=== PATIENT | female | born 1995 | race Caucasian/White ===

== ENCOUNTER → 2024-02-19 | Outpatient (CLI) | payer OTHER ==
[2024-02-19 15:47] LABS: Urine Bacteria None Seen /hpf (None Seen)
[2024-02-19 15:52] LABS: Basophils # (auto) 0 10 ^3/uL (0-0.2); Basophils % (auto) 0.5 % (0.0-2.0); Eosinophils # (auto) 0.2 10 ^3/uL (0-0.8); Eosinophils % (auto) 2.3 % (0.0-7.0); Hematocrit 39.5 % (36.0-46.0); Hemoglobin 13.3 g/dL (12.2-16.2); Lymphocytes # (auto) 3.7 10 ^3/uL (0.4-5.4); Lymphocytes % (auto) 36.4 % (10.0-50.0); Mean Corpuscular Hemoglobin 31.8 pg (28.0-32.0); Mean Corpuscular Hgb Conc. 33.8 g/dL (32.0-36.0); Mean Corpuscular Volume 94.2 fL (80.0-100.0); Monocytes # (auto) 0.7 10 ^3/uL (0-1.3); Monocytes % (auto) 6.5 % (0.0-12.0); Neutrophils # (auto) 5.5 10 ^3/uL (1.6-8.6); Neutrophils % (auto) 54.3 % (37.0-80.0); Red Blood Cells 4.19 10^6/uL (4.0-5.20); Red Cell Distribution Width 12.1 % (11.8-14.3); White Blood Cell 10.1 10^3/uL (4.4-10.8)
[2024-02-19 16:19] LABS: Calcium 10.1 mg/dL (8.5-10.1); Carbon Dioxide 26 mmol/L (20-30)
[2024-02-19 16:20] LABS: BUN/Creatinine Ratio 10.3 (10.0-20.0); Blood Urea Nitrogen 7 mg/dL (9-23); Glucose 86 mg/dL (74-106)
[2024-02-19 16:22] LABS: Anion Gap 7 (5-15); Chloride 103 mmol/L (98-107); Sodium 136 mmol/L (136-145); Thyroid Stimulating Hormone 1.22 uIU/mL (0.55-4.78)
[2024-02-19 16:30] LABS: Beta HCG, Quantitative 76829.3 mIU/mL (1.5-4.2)
[2024-02-19 16:35] LABS: Urine Amorphous Crystal FEW /hpf (None Seen); Urine Blood Negative /uL (Negative); Urine Clarity Clear (Clear); Urine Color Colorless (Yellow); Urine Protein, UAD Negative (Negative); Urine Specific Gravity 1.003 (1.001-1.035); Urine Urobilinogen Normal (Negative); Urine WBC 1 /hpf (0 - 5); Urine pH 6.5 (5.0-9.0)
[2024-02-19 16:39] LABS: Alkaline Phosphatase 60 U/L (46-116)
[2024-02-19 16:44] LABS: Aspartate Aminotransferase 24 U/L (13-40)
[2024-02-19 16:45] LABS: Alanine Aminotransferase 35 U/L (7-40); Albumin 4.5 g/dL (3.2-4.8); Bilirubin, Total 0.3 mg/dL (0.2-1.0); Total Protein 7.2 g/dL (5.7-8.2)
== END | disposition home or self-care (01) ==
LOC: LAB 15:36
DX: N91.2 Amenorrhea, unspecified (principal)
CPT/HCPCS: 36415; 80053; 81001; 84439; 84443; 84702; 85025

== ENCOUNTER → 2024-04-29 | Outpatient (CLI) | payer OTHER ==
[2024-04-29 07:07] LABS: Basophils # (auto) 0 10 ^3/uL (0-0.2); Basophils % (auto) 0.4 % (0.0-2.0); Eosinophils # (auto) 0.2 10 ^3/uL (0-0.8); Eosinophils % (auto) 2.7 % (0.0-7.0); Hematocrit 36.2 % (36.0-46.0); Hemoglobin 12.6 g/dL (12.2-16.2); Lymphocytes # (auto) 2.4 10 ^3/uL (0.4-5.4); Lymphocytes % (auto) 27.8 % (10.0-50.0); Mean Corpuscular Hemoglobin 32.2 pg (28.0-32.0); Mean Corpuscular Hgb Conc. 34.7 g/dL (32.0-36.0); Mean Corpuscular Volume 92.8 fL (80.0-100.0); Monocytes # (auto) 0.4 10 ^3/uL (0-1.3); Monocytes % (auto) 5.3 % (0.0-12.0); Neutrophils # (auto) 5.4 10 ^3/uL (1.6-8.6); Neutrophils % (auto) 63.8 % (37.0-80.0); Nucleated Red Blood Cells % 0.1 %; Red Cell Distribution Width 12.7 % (11.8-14.3); White Blood Cell 8.5 10^3/uL (4.4-10.8)
[2024-04-29 08:03] LABS: Amphetamine Screen, Urine Neg (NEGATIVE); Barbiturate Scree,Urine Neg (NEGATIVE); Benzodiazephine Screen, Urine Neg (NEGATIVE); Cocaine Screen, Urine Neg (NEGATIVE); Opiate Scree,Urine Neg (NEGATIVE)
[2024-04-29 08:04] LABS: Cannabinoid Screen, Urine Neg (NEGATIVE); Phencyclidine Screen, Urine Neg (NEGATIVE)
[2024-04-29 08:07] LABS: Alanine Aminotransferase 21 U/L (7-40); Albumin 3.9 g/dL (3.2-4.8); Alkaline Phosphatase 57 U/L (46-116); Anion Gap 8 (5-15); Aspartate Aminotransferase 15 U/L (13-40); Calcium 9.3 mg/dL (8.7-10.4); Carbon Dioxide 23 mmol/L (20-30); Chloride 106 mmol/L (98-107); Glucose 84 mg/dL (74-106); LDL Cholesterol 141 mg/dL (< 100); Sodium 137 mmol/L (136-145); Triglycerides 155 mg/dL (< 150)
[2024-04-29 08:08] LABS: Bilirubin, Total 0.4 mg/dL (0.2-1.0); Cholesterol 212 mg/dL (< 200); HDL Cholesterol 64 mg/dL (40-59); Thyroid Stimulating Hormone 1.45 uIU/mL (0.55-4.78); Total Protein 6.2 g/dL (5.7-8.2)
[2024-04-29 08:16] LABS: Beta HCG, Quantitative 8337.2 mIU/mL (1.5-4.2)
[2024-04-29 08:20] LABS: BUN/Creatinine Ratio 8.6 (10.0-20.0); Blood Urea Nitrogen < 5 mg/dL (9-23)
[2024-04-30 07:07] LABS: RPR Non Reactive (Non Reactive); Varicella Zoster IgG Antibody 896 index (Immune >165)
[2024-04-30 13:08] LABS: Chlamydia Trachomatis, NAA Negative (Negative); Neisseria gonorrhoeae, NAA Negative (Negative)
[2024-05-01 12:07] LABS: QuantiFERON-TB Gold Plus Negative (Negative)
== END | disposition home or self-care (01) ==
LOC: LAB 06:18
PROVIDERS: ATTEND Obstetrics & Gynecology
DX: O23.40 Unspecified infection of urinary tract in pregnancy, unspecified trimester (principal); Z31.430 Encounter of female for testing for genetic disease carrier status for procreative management; Z3A.00 Weeks of gestation of pregnancy not specified; N39.0 Urinary tract infection, site not specified
CPT/HCPCS: 36415; 80053; 80061; 80307; 83036; 84436; 84443; 84702; 85025; 86592; 86703; 86762; 86787; 86850; 86900; 86901; 87086

== ENCOUNTER 2024-07-22 08:52 | Observation (INO) | payer OTHER ==
[2024-07-22] MEDS ORDERED: PREN-96 PO (10:07)
== END 2024-07-22 10:58 | disposition home or self-care (01) ==
LOC: UNDOADMOB 08:52 → LDRP 08:52 → UNDODISOB 10:58
PROVIDERS: ADMIT Obstetrics & Gynecology; ATTEND Obstetrics & Gynecology
DX: O36.5130 Maternal care for known or suspected placental insufficiency, third trimester, not applicable or unspecified (principal); O24.419 Gestational diabetes mellitus in pregnancy, unspecified control; Z3A.33 33 weeks gestation of pregnancy; Z79.899 Other long term (current) drug therapy
CPT/HCPCS: 59025; 76818; 81002; 82948; 94760; G0378

== ENCOUNTER 2024-07-28 09:23 | Observation (INO) | payer OTHER ==
[~2024-07-28 09:23] MED LIST: PREN-96 PO
== END 2024-07-28 17:31 | disposition home or self-care (01) ==
LOC: UNDOADMOB 15:25 → LDRP 15:25 → UNDODISOB 17:31
PROVIDERS: ADMIT Obstetrics & Gynecology; ATTEND Obstetrics & Gynecology
DX: O24.419 Gestational diabetes mellitus in pregnancy, unspecified control (principal); O36.5930 Maternal care for other known or suspected poor fetal growth, third trimester, not applicable or unspecified; Z3A.34 34 weeks gestation of pregnancy; Z88.2 Allergy status to sulfonamides; Z88.1 Allergy status to other antibiotic agents; Z91.040 Latex allergy status; Z87.891 Personal history of nicotine dependence
CPT/HCPCS: 59025; 76818; 81002; 82948; 82962; 94760; G0378

== ENCOUNTER 2024-07-31 11:22 | Observation (INO) | payer OTHER | END 2024-07-31 12:39 | disposition home or self-care (01) | LOC: LDRP 11:22 | PROVIDERS: ADMIT Obstetrics & Gynecology; ATTEND Obstetrics & Gynecology | DX: O24.419 Gestational diabetes mellitus in pregnancy, unspecified control (principal); O36.5930 Maternal care for other known or suspected poor fetal growth, third trimester, not applicable or unspecified; Z3A.34 34 weeks gestation of pregnancy; Z88.2 Allergy status to sulfonamides; Z88.1 Allergy status to other antibiotic agents; Z91.040 Latex allergy status; Z87.891 Personal history of nicotine dependence | CPT/HCPCS: 59025; 76818; 81002; 82948; 82962; 94760; G0378 ==

== ENCOUNTER 2024-08-04 13:56 | Observation (INO) | payer OTHER | END 2024-08-04 17:25 | disposition home or self-care (01) | LOC: LDRP 15:47 → UNDOADMOB 15:47 → LDRP 15:51 → UNDODISOB 17:25 | PROVIDERS: ADMIT Obstetrics & Gynecology; ATTEND Obstetrics & Gynecology | DX: O24.419 Gestational diabetes mellitus in pregnancy, unspecified control (principal); O36.5130 Maternal care for known or suspected placental insufficiency, third trimester, not applicable or unspecified; Z3A.35 35 weeks gestation of pregnancy; Z79.899 Other long term (current) drug therapy; Z98.890 Other specified postprocedural states | CPT/HCPCS: 59025; 76818; 81002; 82948; 82962; 94760; G0378 ==

== ENCOUNTER 2024-08-07 09:02 | Observation (INO) | payer OTHER | END 2024-08-07 17:42 | disposition home or self-care (01) | LOC: UNDOADMOB 16:05 → LDRP 16:05 → UNDODISOB 17:42 | PROVIDERS: ADMIT Obstetrics & Gynecology; ATTEND Obstetrics & Gynecology | DX: O24.419 Gestational diabetes mellitus in pregnancy, unspecified control (principal); O36.5930 Maternal care for other known or suspected poor fetal growth, third trimester, not applicable or unspecified; Z3A.35 35 weeks gestation of pregnancy | CPT/HCPCS: 59025; 76818; 81002; 94760; G0378 ==

== ENCOUNTER 2024-08-11 14:08 | Observation (INO) | payer OTHER | END 2024-08-11 16:49 | disposition home or self-care (01) | LOC: LDRP 14:50 → UNDOADMOB 14:50 → LDRP 15:23 | PROVIDERS: ADMIT Obstetrics & Gynecology; ATTEND Obstetrics & Gynecology | DX: O36.5130 Maternal care for known or suspected placental insufficiency, third trimester, not applicable or unspecified (principal); O24.419 Gestational diabetes mellitus in pregnancy, unspecified control; Z3A.36 36 weeks gestation of pregnancy; Z79.899 Other long term (current) drug therapy; Z98.890 Other specified postprocedural states | CPT/HCPCS: 59025; 76818; 81002; 82948; 82962; 94760; G0378 ==

== ENCOUNTER 2024-08-14 12:17 | Observation (INO) | payer OTHER | END 2024-08-14 16:23 | disposition home or self-care (01) | LOC: LDRP 14:54 | PROVIDERS: ADMIT Obstetrics & Gynecology; ATTEND Obstetrics & Gynecology | DX: O36.5930 Maternal care for other known or suspected poor fetal growth, third trimester, not applicable or unspecified (principal); O24.419 Gestational diabetes mellitus in pregnancy, unspecified control; Z3A.36 36 weeks gestation of pregnancy; Z88.5 Allergy status to narcotic agent; Z88.2 Allergy status to sulfonamides | CPT/HCPCS: 59025; 76818; 81002; 82948; 82962; 94760; G0378 ==

== ENCOUNTER 2024-08-20 07:54 | Observation (INO) | payer OTHER ==
--- NOTE | 2024-08-20 08:57 | DVH ---
BIOPHYSICAL PROFILE HISTORY: IUG, GDMA1 TECHNIQUE: Multiple transabdominal real-time grayscale sonographic images through the gravid uterus of the fetus with duplex Doppler color flow and M-mode spectral analysis FINDINGS: BIOPHYSICAL PROFILE: breathing score: 2 movement score: 2 tone score: 2 Quantitative JASPREET score: 2 (JASPREET: 10.1 Cm.) Total score: 8/8 The cervix not visualized Single live fetus in cephalic presentation. heart rate 155 beats per minute. Posterior placenta without previa or abruption IMPRESSION: 1. Biophysical profile score: 8/8
--- NOTE | 2024-08-21 11:09 | DVHDS2 ---
Physician Discharge Progress N Final Diagnosis: iugr Operations or Procedures: Operations or Procedures nst,sono Condition on Discharge: Good Disposition: Home Discharge Instructions: Diet: Consistent carbohydrate Activity: No Restrictions, As Tolerated Medications: na Follow Up Care: Specialist: 1d Discharge Statement: "Patient was advised to return to the ER or call 911 if any headaches, dizziness, shortness of breath, chest pain, abdominal pain, bleeding, fevers, or worsening of medical condition. Patient was counseled about treatment plan, medications, possible side effects, patientverbalized understanding. All questions were answered to the best of my ability. This discharge took greater then 30 minutes in planning, reviewing documentation, counseling the patient, and discussing with other team members." MEL WANG DO Aug 21, 2024 11:09
== END 2024-08-20 10:00 | disposition home or self-care (01) ==
LOC: LDRP 07:54
PROVIDERS: ADMIT Obstetrics & Gynecology; ATTEND Obstetrics & Gynecology
DX: O36.5930 Maternal care for other known or suspected poor fetal growth, third trimester, not applicable or unspecified (principal); O24.419 Gestational diabetes mellitus in pregnancy, unspecified control; Z3A.37 37 weeks gestation of pregnancy; Z88.2 Allergy status to sulfonamides
CPT/HCPCS: 59025; 76818; 81002; 82948; 82962; 94760; G0378

== ENCOUNTER 2024-08-21 06:35 | Inpatient (IN) | payer OTHER ==
[2024-08-20 10:55] LABS: Basophils # (auto) 0 10 ^3/uL (0-0.2); Basophils % (auto) 0.5 % (0.0-2.0); Eosinophils # (auto) 0.1 10 ^3/uL (0-0.8); Eosinophils % (auto) 1.3 % (0.0-7.0); Hematocrit 38.3 % (36.0-46.0); Hemoglobin 12.9 g/dL (12.2-16.2); Lymphocytes # (auto) 2.3 10 ^3/uL (0.4-5.4); Lymphocytes % (auto) 28.7 % (10.0-50.0); Mean Corpuscular Hemoglobin 31.9 pg (28.0-32.0); Mean Corpuscular Hgb Conc. 33.7 g/dL (32.0-36.0); Mean Corpuscular Volume 94.7 fL (80.0-100.0); Monocytes # (auto) 0.5 10 ^3/uL (0-1.3); Monocytes % (auto) 6.7 % (0.0-12.0); Neutrophils # (auto) 5.1 10 ^3/uL (1.6-8.6); Neutrophils % (auto) 62.8 % (37.0-80.0); Nucleated Red Blood Cells % 0.1 %; Platelet Count (auto) 262 10^3/uL (140-450); Red Blood Cells 4.04 10^6/uL (4.0-5.20); White Blood Cell 8.1 10^3/uL (4.4-10.8)
[2024-08-20 11:04] LABS: INR 0.89 (0.9-1.15); Partial Thromboplastin Time 25.6 SEC (24.5-34.5); Prothrombin Time 9.5 sec (9.3-11.8)
[2024-08-20 11:08] LABS: Alanine Aminotransferase 15 U/L (7-40); Albumin 3.9 g/dL (3.2-4.8); Alkaline Phosphatase 126 U/L (46-116); Anion Gap 3 (5-15); Aspartate Aminotransferase 17 U/L (13-40); BUN/Creatinine Ratio 11.1 (10.0-20.0); Blood Urea Nitrogen 7 mg/dL (9-23); Calcium 9.6 mg/dL (8.7-10.4); Carbon Dioxide 28 mmol/L (20-31); Chloride 104 mmol/L (98-107); Glucose 75 mg/dL (74-106); Potassium 4.4 mmol/L (3.5-5.1); Sodium 135 mmol/L (136-145)
[2024-08-20 11:09] LABS: Bilirubin, Total 0.2 mg/dL (0.2-1.0); Total Protein 6.7 g/dL (5.7-8.2)
[2024-08-20 12:51] LABS: Urine Bacteria FEW /hpf (None Seen); Urine Blood Negative /uL (Negative); Urine Clarity Turbid (Clear); Urine Color Yellow (Yellow); Urine Mucus FEW (None Seen); Urine Protein, UAD 1+ (Negative); Urine Specific Gravity 1.024 (1.001-1.035); Urine Urobilinogen Normal (Negative); Urine WBC 3 /hpf (0 - 5)
[2024-08-20 12:56] LABS: Amphetamine Screen, Urine Neg (NEGATIVE); Benzodiazephine Screen, Urine Neg (NEGATIVE)
[2024-08-20 12:57] LABS: Barbiturate Scree,Urine Neg (NEGATIVE); Cannabinoid Screen, Urine Neg (NEGATIVE); Cocaine Screen, Urine Neg (NEGATIVE); Opiate Scree,Urine Neg (NEGATIVE); Phencyclidine Screen, Urine Neg (NEGATIVE)
[~2024-08-21] VITALS: Ht 154.9 cm; Wt 90.7 kg
[2024-08-21] VITALS (11 sets, daily range): BP systolic 92–111; BP diastolic 48–75; PULSE 66–91; RESP 14–18; O2SAT 95–97
[2024-08-21 07:06] LABS: RPR Non Reactive (Non Reactive)
--- NOTE | 2024-08-21 07:52 | DVHHP2 ---
OB CC & HPI Date Date of Admission: Aug 21, 2024 Patient Identification: : 2 Para: 1 EDC: Sep 05, 2024 EGA: 37.6 Chief Complaints: Reason for admission: section Indication for : desires repeat History of Present Complaints 29y IUP 37.6 wk by LMP c/w 18 wk US dating Patient w/ GDMA1, BS well controlled. Suspected IUGR, per MFM Dr. Juarez, recommends delivery at 37+ week (early term) Patient denies pain, VB or LOF. Reports good FM. Past Medical History Cardiac: No pertinent Hx Pulmonary: No pertinent Hx Central Nervous System: No pertinent Hx GI: No pertinent Hx Hemotology/Oncology: No pertinent Hx Hepatobiliary: No pertinent Hx Psychiatric: No pertinent Hx Musculoskeletal: No pertinent Hx Rheumotologic: No pertinent Hx Infectious Disease: No peritnent Hx ENT: No pertinent Hx Renal/: No pertinent Hx Endocrine: No pertinent Hx Dermatology: No pertinent Hx Past Surgical History: OB History OB History Care: Good Care Ultrasounds: Normal mid trimester US Obstetrical Complications: Growth Restriction Allergies: Coded Allergies: Erythromycin (Verified Allergy, Unknown, 05/13/16) Sulfa Antibiotics (Verified Allergy, Unknown, 05/13/16) Home Meds Reported Medications Vit W/ Ferrous Fumara ( One Daily) Daily Tab, 1 TAB PO DAILY, #90 TAB 3 Refills 07/22/24 Current Medications Current Medications Medications (Trade) Dose Ordered Sig/Mario Route PRN Reason Start Time Stop Time Status Last Admin Lactated Ringer's 1,000 ml @ 125 mls/hr Q8H IV 08/21/24 06:45 Family & Social History Family/Social History Blood Type: O+ Rubella: immune RPR/VDRL: Negative GBS Status: Unknown HBsAG: Negative Review of Systems Constitutional: No symptom reported Ears, Nose, & Throat: No symptom reported Eyes: No symptom reported Pulmonary/Respiratory: No symptom reported Cardiovascular: No symptom reported Gastrointestinal: No symptom reported Genitourinary: No symptom reported Musculoskeletal: No symptom reported Skin: No symptom reported Psychiatric: No symptom reported Endocrine: No symptom reported Hemotologic/Lymphatic: No symptom reported OB Admission Exam Physical Exam HEENT: NCAT Heart: Rhythm Normal Lungs: Clear Abdomen: Gravid Extremities: Normal Reflexes: Normal Heart Rate: 130's Accelerations: Accelerations Present Decelerations: No Decelerations Short Term Variability: Present Improvement Auditor Variability: Average (6-25) Contractions on Admission: 6-10 Minutes Apart Intensity: Mild OB Plan Plan Admitting Diagnosis: Term IUP 37.6 wk, IUGR, GDMA1 Prior C/S, desires repeat Plan: Section Other Plan: Admit for delivery R/B/A of surgery d/w patient, Informed consent obtained. ASHLEY WELCH DO Aug 21, 2024 07:51
[2024-08-21] MEDS: LACTATED RINGER'S 1,000 ML IV SCH (09:11)
[2024-08-21] MEDS: LACTATED RINGER'S 1,000 ML IV ONE (09:11)
[2024-08-21] MEDS: ceFAZolin 2 GM/D5W50ml 50 ML IV ONE (09:11)
[2024-08-21] MEDS ORDERED: ONDANSETRON HCL 4 MG/2 ML VIAL ONE (12:58)
[2024-08-21] MEDS ORDERED: MORPHINE SULF PF 5 MG/10 ML VIAL ONE (12:58)
[2024-08-21] MEDS ORDERED: KETOROLAC TROMETH 30 MG/ML 1ML VIAL ONE (12:58)
[2024-08-21] MEDS ORDERED: DexAMETHasone SOD PHOS 10MG/1ML VIAL INJ ONE (12:58)
[2024-08-21] MEDS ORDERED: fentaNYL CITRATE 100 MCG/2 ML VL ONE (12:58)
[2024-08-21] MEDS ORDERED: oxyTOCIN 10 UNIT/ML 10ML VIAL ONE (12:59)
[2024-08-21] MEDS ORDERED: ePHEDrine SULFATE 50 MG/ML AMP ONE (13:40)
[2024-08-21] MEDS ORDERED: SODIUM CHLORIDE LOCK 10 ML ONE (13:42)
[2024-08-21] MEDS ORDERED: PHENYLEPHRINE HCL 10 MG/ML VL ONE (13:42)
[2024-08-21] MEDS: LACT. RINGERS/OXYTOCIN 20UNITS 1,000 ML IV ONE (14:15)
[2024-08-21] MEDS ORDERED: ceFAZolin 1GM/50ML 50 ML IV SCH ×2 (14:15→17:00)
[2024-08-21] MEDS ORDERED: KETOROLAC TROMETH 30 MG/ML 1ML VIAL IV PRN (14:15)
[2024-08-21] MEDS ORDERED: ONDANSETRON HCL 4 MG/2 ML VIAL IV PRN ×2 (14:15→14:45)
[2024-08-21] MEDS ORDERED: HYDROmorphone HCL 2 MG/ML VL/or syr IV PRN ×2 (14:15→14:45)
[2024-08-21] MEDS ORDERED: NALOXONE HCL 0.4 MG/ML VIAL IV PRN (14:45)
[2024-08-21] MEDS ORDERED: diphenhdrAMINE HCL 50 MG/1 ML VL IV PRN (14:45)
[2024-08-21] MEDS: NALBUPHINE HCL 10 MG/1ml INJECTION IV ONE (15:04)
--- NOTE | 2024-08-21 15:38 | DVHOP ---
DATE OF SURGERY: 08/21/2024 PREOPERATIVE DIAGNOSES: * Early term 37 weeks 6 days, previous section, desires repeat. * growth restriction. * GDMA1 FINAL DIAGNOSES: * Early term 37 weeks 6 days, previous section, desires repeat. * growth restriction. * GDMA1 PROCEDURE PERFORMED: Repeat low transverse section via Pfannenstiel skin incision. SURGEON: Ramírez Barnett DO DOOR CLOSER MECHANIC: Mike Cotton NP TYPE OF ANESTHESIA: Spinal. ANESTHESIOLOGIST: Ariel Tapia DO INDICATIONS FOR PROCEDURE: The patient is a 29-year-old female. She is 2, now para 2 with history of 1 previous section. Maternal medicine recommended delivery at 37 weeks due to growth restriction. The patient also has gestational diabetes A1. The risks, benefits and alternatives to surgery were discussed with the patient and informed consent was obtained. DESCRIPTION OF FINDINGS: Delivery of a liveborn female infant, cephalic presentation, clear amniotic fluid, scores of 8 and 9, weight 4 pounds 9 ounces. Normal bilateral fallopian tubes, ovaries, uterus and placenta. TECHNICAL PROCEDURE: After informed consent was obtained, the patient was taken to the operating room where her spinal anesthesia was found to be adequate. The patient was placed in the supine position with a slight leftward tilt. She was sterilely prepped and draped in the usual sterile fashion. A Pfannenstiel skin incision was made with the scalpel. The incision was carried down sharply to the underlying layer of fascia. The fascia was incised in the midline and extended laterally. The rectus muscles were dissected off the rectus fascia and entry into the peritoneal cavity was performed bluntly using digital technique. The peritoneal incision was then extended superiorly and inferiorly with good visualization of the bladder. The Bruce O retractor was placed into the incision. Using a second scalpel, the lower uterine segment was incised in a low transverse fashion. The incision was extended laterally and the amniotic fluid membranes were ruptured. The baby was then delivered atraumatically. After delivery of the , the nose and mouth were suctioned. The cord was clamped and cut after 60 seconds and the baby handed off to waiting pediatric team. Cord blood was obtained, the placenta was then manually removed. The uterus was exteriorized and cleared of all clots and debris. The uterine incision was repaired with #1 PDS in continuous running locking fashion in a single layer. Excellent tissue approximation and hemostasis was obtained. Interrupted [id number] was used for control of bleeding point on the uterus. Once hemostasis was confirmed, the uterus was returned to the abdomen. The pericolic gutters and cul-de-sac were cleared of all clots and debris. The abdomen was irrigated with sterile water. Hemostasis was confirmed. All instrumentation was removed from the patient's abdomen. I then proceeded to close the rectus fascia using the Stratafix #1 suture. The anchoring stitch was placed on the patient's left and the continuous running suture was used to close the fascia. Excellent tissue approximation was obtained. The subcutaneous tissue was closed with 2-0 plain gut in interrupted fashion and the skin closed in subcuticular fashion using a 3-0 Monocryl on a Derick needle. The Sylke sterile dressing was then placed over the incision. The patient tolerated the procedure well. Sponge, lap and needle counts were correct x4. INTRAOPERATIVE COMPLICATIONS: None. ESTIMATED BLOOD LOSS: 500 mL POSTOPERATIVE CONDITION: Stable. SPECIMENS: Cord blood and placenta. MEDICATIONS: The patient received 2 grams of Ancef prior to skin incision and IV Pitocin at the time of cord clamp. Ramírez Barnett DO CG/RUB TID: [id number] RECEIPT: [id number] MTDCristo
[2024-08-21 20:44] LABS: Basophils # (auto) 0 10 ^3/uL (0-0.2); Basophils % (auto) 0.2 % (0.0-2.0); Eosinophils # (auto) 0 10 ^3/uL (0-0.8); Hematocrit 36.7 % (36.0-46.0); Hemoglobin 12.6 g/dL (12.2-16.2); Lymphocytes # (auto) 1.4 10 ^3/uL (0.4-5.4); Lymphocytes % (auto) 11.3 % (10.0-50.0); Mean Corpuscular Hemoglobin 32.1 pg (28.0-32.0); Mean Corpuscular Hgb Conc. 34.3 g/dL (32.0-36.0); Mean Corpuscular Volume 93.3 fL (80.0-100.0); Monocytes # (auto) 0.3 10 ^3/uL (0-1.3); Monocytes % (auto) 2.2 % (0.0-12.0); Neutrophils % (auto) 86.3 % (37.0-80.0); Nucleated Red Blood Cells % 0.1 %; Platelet Count (auto) 243 10^3/uL (140-450); Red Blood Cells 3.93 10^6/uL (4.0-5.20); Red Cell Distribution Width 12.8 % (11.8-14.3); White Blood Cell 12.7 10^3/uL (4.4-10.8)
[2024-08-21] MEDS: ceFAZolin 1GM/50ML 50 ML IV SCH (21:13)
[2024-08-21] MEDS: ACETAMINOPHEN IV 1000 MG/100ML (10MG/ML) IV PRN (21:52)
[2024-08-22] VITALS (14 sets, daily range): BP systolic 93–119; BP diastolic 45–75; PULSE 61–95; RESP 16–18; TEMP 97.6; O2SAT 93–99
--- NOTE | 2024-08-22 04:07 | DVHPN2 ---
Progress Note Date Seen: Aug 22, 2024 Subjective POD#1 s/p Repeat C/S at 37.6 wk due to IUGR S: Lochia minimal. pain controlled. No N/V vital signs Vital Sign Date Time Temp Pulse Resp B/P (MAP) Pulse Ox O2 Delivery O2 Flow Rate FiO2 08/22/24 02:59 67 16 99 08/21/24 19:00 Room Air 08/21/24 14:29 97.9 99/52 (68) 97.9 Total Intake and Output 08/21/24 08/21/24 08/22/24 15:00 23:00 07:00 Output Total 350 ml 1280 ml 700 ml Balance -350 ml -1280 ml -700 ml medications Current Medications Medications Dose Ordered Sig/Mario Route Start Time Stop Time Status Last Admin Dose Admin Lactated Ringer's 1,000 ml @ 125 mls/hr Q8H IV 08/21/24 06:45 08/21/24 09:11 125 MLS/HR Ondansetron HCl 4 mg Q4HP PRN IV 08/21/24 14:15 Ketorolac Tromethamine 30 mg Q8HPRN PRN IV 08/21/24 14:15 08/26/24 14:14 Hydromorphone HCl 1 mg Q4HP PRN IV 08/21/24 14:15 Diphenhydramine HCl 25 mg Q4HP PRN IV 08/21/24 14:45 Ondansetron HCl 4 mg Q4HP PRN IV 08/21/24 14:45 Acetaminophen 1,000 mg Q8HP PRN IV 08/21/24 15:15 08/22/24 14:01 08/21/24 21:52 1,000 MG Cefazolin Sodium 50 ml @ 100 mls/hr Q8H IV 08/21/24 21:00 08/22/24 13:29 08/21/24 21:13 100 MLS/HR laboratory and microbiology Laboratory Tests 08/21/24 19:55 08/20/24 09:45 Test 08/20/24 09:45 Range/Units Serum Glucose 75 74-106 mg/dL Objective O: AFVSS Chest: heart and lung sounds normal. Abd soft, non-tender, fundus firm, BS, no rebound or guarding, Incision - dressing and incision clean, dry, intact Ext Neg Homans, Non-tender, edema Lochia - minimal Labs reviewed Assessment/Plan POD#1 s/p Repeat C/S GDMA1, euglycemic plan: Continue supportive care Pain control Advance orders Plan discussed with: Patient ASHLEY WELCH DO Aug 22, 2024 04:07
[2024-08-22 06:54] LABS: Basophils # (auto) 0 10 ^3/uL (0-0.2); Basophils % (auto) 0.1 % (0.0-2.0); Eosinophils # (auto) 0 10 ^3/uL (0-0.8); Eosinophils % (auto) 0.2 % (0.0-7.0); Hematocrit 38.6 % (36.0-46.0); Hemoglobin 13.2 g/dL (12.2-16.2); Lymphocytes # (auto) 2.3 10 ^3/uL (0.4-5.4); Lymphocytes % (auto) 20.7 % (10.0-50.0); Mean Corpuscular Hemoglobin 32.2 pg (28.0-32.0); Mean Corpuscular Hgb Conc. 34.1 g/dL (32.0-36.0); Mean Corpuscular Volume 94.3 fL (80.0-100.0); Monocytes # (auto) 0.7 10 ^3/uL (0-1.3); Monocytes % (auto) 6.3 % (0.0-12.0); Neutrophils # (auto) 8.1 10 ^3/uL (1.6-8.6); Neutrophils % (auto) 72.7 % (37.0-80.0); Platelet Count (auto) 262 10^3/uL (140-450); Red Blood Cells 4.09 10^6/uL (4.0-5.20); Red Cell Distribution Width 12.8 % (11.8-14.3); White Blood Cell 11.2 10^3/uL (4.4-10.8)
[2024-08-22] MEDS ORDERED: HYDROcodone-ACET 5/325MG TAB PO PRN ×2 (14:00)
[2024-08-22] MEDS ORDERED: BISACODYL 10 MG RECT SUPP PR PRN (14:00)
[2024-08-22] MEDS: IBUPROFEN 800 MG TAB PO PRN (14:04)
[2024-08-22] MEDS: SIMETHICONE 80 MG CHEWABLE TABLET PO SCH (17:56)
[2024-08-22] MEDS: DOCUSATE SOD 100 MG CAP PO SCH (21:48)
--- NOTE | 2024-08-23 05:00 | DVHPN2 ---
Progress Note Date Seen: Aug 23, 2024 Subjective S: Lochia minimal. Regular diet well tolerated. Ambulating and voiding well w/o feeling dizzy or lightheaded. Pain relieved with oral analgesics. Passing flatus but no BM yet. Pumping Breast milk w/o problem ( transferred to a higher level of care) Contemplating IUD for contraception Desires & Requests to be discharged today vital signs Vital Sign Date Time Temp Pulse Resp B/P (MAP) Pulse Ox O2 Delivery O2 Flow Rate FiO2 08/22/24 19:00 Room Air 08/22/24 19:00 97.6 77 18 119/57 (77) 99 97.6 Total Intake and Output 08/22/24 08/22/24 08/23/24 15:00 23:00 07:00 Intake Total 500 ml Output Total 1650 ml Balance -1650 ml 500 ml medications Current Medications Medications Dose Ordered Sig/Mario Route Start Time Stop Time Status Last Admin Dose Admin Lactated Ringer's 1,000 ml @ 125 mls/hr Q8H IV 08/21/24 06:45 08/21/24 09:11 125 MLS/HR Ondansetron HCl 4 mg Q4HP PRN IV 08/21/24 14:15 Diphenhydramine HCl 25 mg Q4HP PRN IV 08/21/24 14:45 Docusate Calcium 240 mg DAILY PO 08/23/24 10:00 Docusate Sodium 100 mg Q12HR PO 08/22/24 22:00 08/22/24 21:48 100 MG Dimethicone 80 mg QID PO 08/22/24 18:00 08/22/24 21:48 80 MG Bisacodyl 10 mg DAILYP PRN AK 08/22/24 14:00 Ibuprofen 800 mg Q8HP PRN PO 08/22/24 14:00 08/22/24 21:48 800 MG Acetaminophen/ Hydrocodone Bitart 1 tab Q4HPRN PRN PO 08/22/24 14:00 Acetaminophen/ Hydrocodone Bitart 2 tab Q4HPRN PRN PO 08/22/24 14:00 laboratory and microbiology Laboratory Tests 08/22/24 04:07 08/20/24 09:45 Test 08/20/24 09:45 Range/Units Serum Glucose 75 74-106 mg/dL Objective O: A&O x3 NAD. Afebrile, VSS Chest: heart and lung sounds normal. Breasts: Nipples intact w/o cracks or soreness Abdomen: normal BS, soft, non-tender, no rebound or guarding, fundus firm @ U- 1, Lower abdominal Incision site with Sylke dressing on, same clean, dry and intact. No edema, erythema or induration Extremities: no edema or tenderness Lochia - minimal Assessment/Plan 29 yo now Post operative & ppd # 2 s/p Repeat Section doing well. GDMA1, euglycemic Blood Type: O Rh: Positive (pumping) Rubella Immune Pain control with oral medications Bowel regimen: Increase fluid intake and fiber in diet, Laxative PRN Discharge plan: May discharge home later today if condition remains stable Plan discussed with: Patient, Other (Patient's sister) [facility] TITUS CNM Aug 23, 2024 05:00
--- NOTE | 2024-08-23 05:08 | DVHDS2 ---
Obstetrics Discharge Summary Obstetrics Discharge Summary Date of Admission: Aug 21, 2024 Date of Discharge: Aug 23, 2024 Reason For Admission: Section (Repeat) Procedures: NST Intrapartum Procedures: (Low Cervical Transverse) Procedures: None, Hct/date: (38.6% on 08/22/24), Hgb/date: (13.2g/dL on 08/22/24) Operative Complicat: None Discharge Diagnosis: Term -Delivered Discharge Information: Activity (Unrestricted. Advance as tolerated. No heavy lifting, pushing or straining. Pelvic rest x 6weeks), Diet (Routine regular diet rich in fiber, protein, iron and vitamin C with adequate fluid intake.), Medications (Ibuprofen), Instructions ( Post operative and self care instructions given. emergency signs and symptoms including pre- eclampsia precautions and signs of PPD reviewed with patient. Follow up with OB Provider in 1 week), Discharge to (Home) [facility] TIUTS CNM Aug 23, 2024 05:07
[2024-08-23 07:30] VITALS: BP 120/78; PULSE 60; RESP 18; TEMP 97.9; O2SAT 98
[2024-08-23] MEDS ORDERED: HYDR-4072 PO (07:35)
[2024-08-23] MEDS ORDERED: IBUP-1456 PO (07:35)
[2024-08-23] MEDS ORDERED: DOCU-94 PO (07:35)
[2024-08-23 08:41] VITALS: BP 120/76; PULSE 60; RESP 16; TEMP 97.9; O2SAT 98
[2024-08-23] MEDS ORDERED: DOCUSATE CALCIUM 240 MG CAP PO SCH (10:00)
[2024-08-24 10:06] LABS: Treponema Pallidum Ab LC Non Reactive (Non Reactive)
== END 2024-08-23 08:41 | disposition home or self-care (01) | DRG 788 ==
LOC: LDRP 06:35
PROVIDERS: ADMIT Obstetrics & Gynecology; ATTEND Obstetrics & Gynecology
PROC: 10D00Z1 Extraction of Products of Conception, Low, Open Approach (ICD-10-PCS; principal; 2024-08-21 13:28)
DX: O34.211 Maternal care for low transverse scar from previous cesarean delivery (principal); O36.5930 Maternal care for other known or suspected poor fetal growth, third trimester, not applicable or unspecified; Z37.0 Single live birth; O24.420 Gestational diabetes mellitus in childbirth, diet controlled; Z3A.37 37 weeks gestation of pregnancy; Z88.1 Allergy status to other antibiotic agents
CPT/HCPCS: 36415; 59025; 80053; 80307; 81001; 81002; 82948; 82962; 85025; 85610; 85730; 86592; 86780; 86803; 86850; 86900; 86901; 94760; 94762; 96360; 96361; G0378; J0131; J1100; J1885; J2405; J2590